=== PATIENT | female | born 1965 | race Caucasian/White ===

== ENCOUNTER 2025-02-04 12:26 | Emergency (ER) | payer MEDICARE, OTHER ==
[~2025-02-04] VITALS: Ht 177.8 cm; Wt 74.0 kg
[2025-02-04 12:59] LABS: BASOPHILS 1.0 % (0.1-1.2); EOSINOPHILS 1.4 % (0.7-5.8); LYMPHOCYTES 17.6 % (19.3-51.7); MCH 20.4 PG (25.6-32.2); MCHC 28.4 g/dL (32.2-35.5); MCV 71.7 fL (79.4-94.8); MONOCYTES 6.6 % (4.7-12.5); NEUTROPHILS 72.5 % (34.0-71.1); RBC 4.07 M/uL (3.93-5.22)
[2025-02-04 13:16] LABS: AST (SGOT) 26 U/L (15-37); GLOMERULAR FILTRATION RATE,EST 105 mL/min (>60); PROTEIN, TOTAL 7.3 g/dL (6.4-8.2); UREA NITROGEN 7 mg/dL (7-18)
[2025-02-04 13:19] LABS: ALT (SGPT) <6 U/L (14-59)
--- NOTE | 2025-02-04 13:51 | EKG ---
[facility] [address] [place], [place] [address] Signed Normal sinus rhythm Incomplete right bundle branch block Borderline ECG No previous ECGs available Confirmed by NATANAEL WEBER MD ([id number]) on 02/04/2025 1:51:31 PM Electronically Signed By: NATANAEL WEBER 02/04/25 1351 PATIENT NAME: CANDYYAHAIRAHEBER LOPEZ Electrocardiogram DATE OF : 67 PHYSICIAN: NATANAEL WEBER REPORT #: [id number] REPORT IS CONFIDENTIAL AND NOT TO BE RELEASED WITHOUT AUTHORIZATION
[2025-02-04 14:48] VITALS: BP 138/79
== END 2025-02-04 14:50 | disposition home or self-care (01) ==
LOC: ED 12:26
PROVIDERS: Emergency Medicine
DX: R07.9 Chest pain, unspecified (principal)
CPT/HCPCS: 36415; 71045; 80053; 83735; 84484; 85025; 93005; 93010; 99285-25